=== PATIENT | female | born 1935 | race African-American/Black ===

== ENCOUNTER 2022-03-19 17:39 | Inpatient (IN) | payer OTHER ==
[~2022-03-19] VITALS: Ht 162.6 cm; Wt 31.9 kg
[2022-03-19 19:08] LABS: HEMATOCRIT. 47.4 % (36.0-48.0); HEMOGLOBIN. 14.5 g/dL (12.0-16.0); MEAN CORPUSCULAR HEMOGLOBIN 25.7 pg (28.0-32.0); MEAN CORPUSCULAR VOLUME 83.8 fL (81.0-99.0); MEAN PLATELET VOLUME 9.2 fl (7.4-10.4); PLATELET 404 x1000/uL (130-400); RED BLOOD CELL COUNT 5.66 mill/uL (4.2-5.4); RED CELL DISTRIBUTION WIDTH 16.1 % (11.6-14.6)
[2022-03-19] MEDS ORDERED: AZITHROMYCIN 500 MG in DEXT 5% WATER 250 ML IV STA (19:20)
[2022-03-19 19:21] LABS: CHLORIDE 115 mEq/L (98-107)
[2022-03-19 19:27] LABS: D-DIMER 12.25 mg/L FEU (<0.50); INR 1.2; PROTHROMBIN TIME 12.4 sec (9.6-11.0)
[2022-03-19] MEDS ORDERED: DEXAMETHASONE 10 MG/ML VIAL IV ONE (19:30)
[2022-03-19] MEDS ORDERED: CEFTRIAXONE 1 G PREMIX 50 ML IV ONE (19:30)
[2022-03-19 20:07] LABS: PLATELET ESTIMATE INCREASED
[2022-03-19] MEDS ORDERED: IOHEXOL-350 100 ML BOTTLE ONE ×2 (20:55→23:09)
[2022-03-19] MEDS ORDERED: HEPARIN 5000 UNITS/ML VIAL IV SCH (22:00)
[2022-03-19] MEDS ORDERED: HEPARIN 25,000 UNITS PREMIX 250 ML IV PRN (22:00)
[2022-03-19 23:30] VITALS: BP 148/89
[2022-03-20] VITALS (16 sets, daily range): BP systolic 116–182; BP diastolic 56–91
[2022-03-20] MEDS ORDERED: HEPARIN 25,000 UNITS PREMIX 250 ML IV SCH
[2022-03-20] MEDS ORDERED: HEPARIN 25,000 UNITS PREMIX 250 ML IV PRN (00:30)
[2022-03-20] MEDS ORDERED: HEPARIN 5000 UNITS/ML VIAL IV PRN ×2 (00:30)
[2022-03-20] MEDS ORDERED: ONDANSETRON HCL 4MG/2ML INJ IV PRN (00:45)
[2022-03-20] MEDS ORDERED: DOCUSATE SODIUM 100MG CAPSULE GT PRN (00:45)
[2022-03-20] MEDS ORDERED: MORPHINE SULFATE 2 MG/ML CPJ (NOT FOR IM USE) IV PRN (00:45)
[2022-03-20] MEDS ORDERED: GUAIFENESIN 200MG/10ML SUGAR FREE UDC GT PRN (00:45)
[2022-03-20] MEDS ORDERED: MAGNESIUM/ALUMINUM HYDROXIDE/SIMETHICONE 30ML UDC GT PRN (00:45)
[2022-03-20] MEDS ORDERED: CLONIDINE 0.1MG TABLET GT PRN (00:45)
[2022-03-20] MEDS ORDERED: DEXTROSE 50% WATER 50ML SYRINGE IV PRN (01:00)
[2022-03-20] MEDS: FUROSEMIDE 40MG/4ML VIAL IV SCH ×2 (01:31→08:01)
[2022-03-20] MEDS ORDERED: HYDRALAZINE 20MG/ML VIAL IV PRN (02:15)
[2022-03-20] MEDS ORDERED: LABETALOL HCL VIAL 20 MG/4 ML VIAL IV PRN (04:45)
[2022-03-20] MEDS: INSULIN LISPRO 100 UNITS/ML SUBCUT SCH ×3 (05:23→17:12)
[2022-03-20] MEDS: BLOOD SUGAR DIAGNOSTIC STRIP TEST SCH ×3 (05:23→17:05)
[2022-03-20] MEDS ORDERED: HEPARIN BOLUS PRN aPTT 37-44 IV (06:00)
[2022-03-20] MEDS ORDERED: HEPARIN BOLUS PRN aPTT <36 IV (06:00)
[2022-03-20 06:28] LABS: CHLORIDE 112 mEq/L (98-107)
[2022-03-20 06:35] LABS: HEMATOCRIT. 46.1 % (36.0-48.0); HEMOGLOBIN. 14.4 g/dL (12.0-16.0); MEAN CORPUSCULAR HEMOGLOBIN 26.1 pg (28.0-32.0); MEAN CORPUSCULAR VOLUME 83.7 fL (81.0-99.0); MEAN PLATELET VOLUME 9.4 fl (7.4-10.4); MONOCYTES % 2.6 % (2.0-8.0); NEUTROPHILS % 89.4 % (40.0-76.0); PLATELET 367 x1000/uL (130-400); RED BLOOD CELL COUNT 5.51 mill/uL (4.2-5.4); RED CELL DISTRIBUTION WIDTH 16.1 % (11.6-14.6)
[2022-03-20 06:51] LABS: CREATINE KINASE 34 IU/L (26-192); HDL CHOLESTEROL 65 mg/dL (40-59); LDL CHOLESTEROL 119 mg/dL (5-100)
[2022-03-20] MEDS ORDERED: BLOOD SUGAR DIAGNOSTIC STRIP TEST SCH (07:30)
[2022-03-20] MEDS ORDERED: INSULIN LISPRO 100 UNITS/ML SUBCUT SCH (08:00)
[2022-03-20] MEDS ORDERED: POTASSIUM CHLORIDE 20MEQ/PACKET NG NR (10:15)
[2022-03-20] MEDS ORDERED: NALOXONE HCL 0.4MG/ML VIAL IV PRN (10:30)
[2022-03-20] MEDS ORDERED: VASOPRESSIN 20 UNITS in SODIUM CHLORIDE 0.9% 100 ML IV SCH (11:00)
[2022-03-20] MEDS: HYDRALAZINE 20MG/ML VIAL IV SCH ×2 (11:01→17:12)
[2022-03-20 12:09] LABS: BG BASE EXCESS 3.3 mmol/L (-2.0-2.0); BG CARBOXYHEMOGLOBIN 0.4 % (0.5-1.5); BG DEOXYHEMOGLOBIN 0.4 % (0.0-5.0); BG FRACTION INSPIRED OXYGEN 100; BG HCO3 ACT 25.9 mmol/L (22.0-26.0); BG METHEMOGLOBIN 0.4 % (0.0-1.5); BG OXYGEN SATURATION 99.6 % (92.0-98.5); BG OXYHEMOGLOBIN 98.8 % (94.0-97.0); BG PCO2 33.6 mmHg (35.0-45.0); BG PH 7.505 (7.350-7.450); BG PO2 204.2 mmHg (75.0-100.0); BG SAMPLE SITE RIGHT RADIAL; BG TOTAL HEMOGLOBIN 15.1 g/dL (12.0-18.0); BG VENT MODE HIGH FLOW
[2022-03-20] MEDS: CEFTRIAXONE 1,000 MG in DEXTROSE 5% WATER 50 ML IV SCH (20:45)
[2022-03-20] MEDS: AZITHROMYCIN 500 MG in DEXT 5% WATER 250 ML IV SCH (20:45)
[2022-03-20] MEDS: AMLODIPINE 5MG TABLET NG SCH (20:46)
[2022-03-20] MEDS: ATORVASTATIN CALCIUM 10MG TABLET NG SCH (20:46)
[2022-03-21] VITALS (12 sets, daily range): BP systolic 99–137; BP diastolic 51–76
[2022-03-21] MEDS: BLOOD SUGAR DIAGNOSTIC STRIP TEST SCH ×5 (00:05→23:49)
[2022-03-21] MEDS: HYDRALAZINE 20MG/ML VIAL IV SCH ×5 (00:16→23:49)
[2022-03-21] MEDS: INSULIN LISPRO 100 UNITS/ML SUBCUT SCH ×5 (05:41→23:58)
[2022-03-21 08:05] LABS: INR 1.1; PROTHROMBIN TIME 11.7 sec (9.6-11.0)
[2022-03-21 08:10] LABS: BASOPHILS % 0.2 % (0.0-2.0); LYMPHOCYTES % 10.8 % (20.0-50.0); MEAN CORPUSCULAR HEMOGLOBIN 25.6 pg (28.0-32.0); MEAN CORPUSCULAR VOLUME 82.3 fL (81.0-99.0); MONOCYTES % 3.9 % (2.0-8.0); NEUTROPHILS % 85.1 % (40.0-76.0); PLATELET 358 x1000/uL (130-400); RED BLOOD CELL COUNT 5.47 mill/uL (4.2-5.4); RED CELL DISTRIBUTION WIDTH 16.2 % (11.6-14.6)
[2022-03-21] MEDS: FUROSEMIDE 40MG/4ML VIAL IV SCH (10:16)
[2022-03-21] MEDS: AMLODIPINE 5MG TABLET NG SCH ×2 (10:16→20:35)
[2022-03-21] MEDS ORDERED: SODIUM CHLORIDE 0.45% 1,000 ML IV SCH (12:00)
[2022-03-21] MEDS: DEXTROSE 5% WATER 1,000 ML IV SCH (12:53)
[2022-03-21] MEDS: ENOXAPARIN 30MG/0.3ML SYR SUBCUT SCH (14:17)
[2022-03-21] MEDS: CEFTRIAXONE 1,000 MG in DEXTROSE 5% WATER 50 ML IV SCH (20:35)
[2022-03-21] MEDS: AZITHROMYCIN 500 MG in DEXT 5% WATER 250 ML IV SCH (20:35)
[2022-03-21] MEDS: ATORVASTATIN CALCIUM 10MG TABLET NG SCH (20:35)
[2022-03-22] VITALS (12 sets, daily range): BP systolic 108–166; BP diastolic 45–76
[2022-03-22] MEDS: INSULIN LISPRO 100 UNITS/ML SUBCUT SCH ×3 (05:16→17:52)
[2022-03-22] MEDS: HYDRALAZINE 20MG/ML VIAL IV SCH ×3 (05:16→18:00)
[2022-03-22] MEDS: BLOOD SUGAR DIAGNOSTIC STRIP TEST SCH ×3 (05:16→17:52)
[2022-03-22] MEDS: DEXTROSE 5% WATER 1,000 ML IV SCH (05:17)
[2022-03-22 07:06] LABS: BASOPHILS % 0.1 % (0.0-2.0); EOSINOPHILS % 0.1 % (0.0-5.0); HEMATOCRIT. 39.7 % (36.0-48.0); HEMOGLOBIN. 12.6 g/dL (12.0-16.0); LYMPHOCYTES % 9.1 % (20.0-50.0); MEAN CORPUSCULAR HEMOGLOBIN 25.9 pg (28.0-32.0); MEAN CORPUSCULAR VOLUME 81.7 fL (81.0-99.0); MEAN PLATELET VOLUME 9.6 fl (7.4-10.4); MONOCYTES % 2.9 % (2.0-8.0); NEUTROPHILS % 87.8 % (40.0-76.0); PLATELET 306 x1000/uL (130-400); RED BLOOD CELL COUNT 4.86 mill/uL (4.2-5.4); RED CELL DISTRIBUTION WIDTH 15.7 % (11.6-14.6)
[2022-03-22] MEDS ORDERED: POTASSIUM CHLORIDE INJ 40 MEQ in DEXT 5% WATER 250 ML IV ONE (08:30)
[2022-03-22] MEDS: AMLODIPINE 5MG TABLET NG SCH ×2 (09:24→20:42)
[2022-03-22] MEDS: POTASSIUM CHLORIDE 20MEQ/PACKET PO SCH (09:24)
[2022-03-22] MEDS: LEVETIRACETAM 500MG/5ML CUP PO SCH ×2 (11:53→20:42)
[2022-03-22] MEDS: KCL 20MEQ/100ML X 2 FOR TOTAL KCL 40MEQ/200ML IV SCH ×2 (11:54→15:21)
[2022-03-22] MEDS: ENOXAPARIN 30MG/0.3ML SYR SUBCUT SCH (13:04)
[2022-03-22] MEDS: AZITHROMYCIN 500 MG in DEXT 5% WATER 250 ML IV SCH (20:41)
[2022-03-22] MEDS: ATORVASTATIN CALCIUM 10MG TABLET NG SCH (20:42)
[2022-03-22] MEDS: CEFTRIAXONE 1,000 MG in DEXTROSE 5% WATER 50 ML IV SCH (20:42)
[2022-03-23] VITALS (14 sets, daily range): BP systolic 115–163; BP diastolic 56–77
[2022-03-23] MEDS: BLOOD SUGAR DIAGNOSTIC STRIP TEST SCH ×4 (00:15→17:19)
[2022-03-23] MEDS: INSULIN LISPRO 100 UNITS/ML SUBCUT SCH ×4 (00:39→17:26)
[2022-03-23] MEDS: HYDRALAZINE 20MG/ML VIAL IV SCH ×2 (00:40→05:21)
[2022-03-23] MEDS: DEXTROSE 5% WATER 1,000 ML IV SCH (04:15)
[2022-03-23 05:11] LABS: CLARITY URINE TURBID (CLEAR); COLOR URINE DARK YELLOW (YELLOW); KETONES URINE TRACE (NEGATIVE); LEUKOCYTE ESTERASE URINE 2+ (NEGATIVE); NITRITE URINE NEGATIVE (NEGATIVE); OCCULT BLOOD URINE NEGATIVE (NEGATIVE); PROTEIN URINE 2+ (NEGATIVE); SPECIFIC GRAVITY URINE 1.039 (1.005-1.030)
[2022-03-23] MEDS: AMLODIPINE 5MG TABLET NG SCH ×2 (08:31→20:35)
[2022-03-23] MEDS: POTASSIUM CHLORIDE 20MEQ/PACKET PO SCH (08:31)
[2022-03-23] MEDS ORDERED: SODIUM CHLORIDE 0.9% 1,000 ML IV SCH (12:00)
[2022-03-23] MEDS ORDERED: HYDRALAZINE HCL 50MG TABLET NG SCH (14:00)
[2022-03-23] MEDS ORDERED: SODIUM POLYSTYRENE SULFONATE 15 G/60 ML BOT PO NR (14:30)
[2022-03-23] MEDS: ENOXAPARIN 30MG/0.3ML SYR SUBCUT SCH (14:48)
[2022-03-23 15:58] LABS: BASOPHILS % 0.3 % (0.0-2.0); EOSINOPHILS % 0.1 % (0.0-5.0); HEMATOCRIT. 39.1 % (36.0-48.0); HEMOGLOBIN. 12.4 g/dL (12.0-16.0); LYMPHOCYTES % 8.4 % (20.0-50.0); MEAN CORPUSCULAR HEMOGLOBIN 25.8 pg (28.0-32.0); MEAN CORPUSCULAR VOLUME 81.5 fL (81.0-99.0); MONOCYTES % 2.9 % (2.0-8.0); NEUTROPHILS % 88.3 % (40.0-76.0); PLATELET 246 x1000/uL (130-400); RED BLOOD CELL COUNT 4.81 mill/uL (4.2-5.4); RED CELL DISTRIBUTION WIDTH 15.6 % (11.6-14.6)
[2022-03-23 16:25] LABS: CHLORIDE 106 mEq/L (98-107)
[2022-03-23] MEDS: ATORVASTATIN CALCIUM 10MG TABLET NG SCH (20:34)
[2022-03-23] MEDS: AZITHROMYCIN 500 MG in DEXT 5% WATER 250 ML IV SCH (20:34)
[2022-03-23] MEDS: CEFTRIAXONE 1,000 MG in DEXTROSE 5% WATER 50 ML IV SCH (20:34)
[2022-03-23] MEDS ORDERED: LEVETIRACETAM 500MG/5ML CUP PO SCH (21:00)
== END 2022-03-23 22:00 | disposition short-term general hospital (02) | DRG 871 ==
LOC: ER 17:39 → EDBEDREQ 18:18 → EDBEDREQSVC 18:18 → 5EST 20:43 → EDBEDREQSVC 20:52 → EDBEDREQTM 20:52 → EDBEDREQ 20:52 → ENRESERV 21:18 → 5EST 03-20 00:34
PROVIDERS: ADMIT Family Medicine Adult Medicine; ATTEND Family Medicine Adult Medicine
PROC: 5A0935A Assistance with Respiratory Ventilation, Less than 24 Consecutive Hours, High Flow/Velocity Cannula (ICD-10-PCS; principal; 2022-03-20)
PROC: 4A00X4Z Measurement of Central Nervous Electrical Activity, External Approach (ICD-10-PCS; 2022-03-22)
DX: A41.9 Sepsis, unspecified organism (principal); G93.41 Metabolic encephalopathy; I26.99 Other pulmonary embolism without acute cor pulmonale; J18.9 Pneumonia, unspecified organism; J96.01 Acute respiratory failure with hypoxia; E87.0 Hyperosmolality and hypernatremia; E44.0 Moderate protein-calorie malnutrition; E87.2 Acidosis; R64 Cachexia; J81.1 Chronic pulmonary edema; Z68.1 Body mass index [BMI] 19.9 or less, adult; E87.6 Hypokalemia; Z20.822 Contact with and (suspected) exposure to COVID-19; E87.8 Other disorders of electrolyte and fluid balance, not elsewhere classified; F03.90 Unspecified dementia, unspecified severity, without behavioral disturbance, psychotic disturbance, mood disturbance, and anxiety; E78.5 Hyperlipidemia, unspecified; E88.09 Other disorders of plasma-protein metabolism, not elsewhere classified; E86.0 Dehydration; R79.89 Other specified abnormal findings of blood chemistry; E11.65 Type 2 diabetes mellitus with hyperglycemia; I25.10 Atherosclerotic heart disease of native coronary artery without angina pectoris; I10 Essential (primary) hypertension; I49.3 Ventricular premature depolarization; I35.1 Nonrheumatic aortic (valve) insufficiency; I49.1 Atrial premature depolarization; N28.9 Disorder of kidney and ureter, unspecified; Z79.4 Long term (current) use of insulin; Z66 Do not resuscitate; Z86.73 Personal history of transient ischemic attack (TIA), and cerebral infarction without residual deficits
CPT/HCPCS: 36415; 36600; 71045; 71275; 76770; 80048; 80053; 80061; 81003; 82140; 82375; 82550; 82805; 82962; 83036; 83605; 83880; 84145; 84443; 84484; 85025; 85379; 86850; 86900; 87426; 92610; 93005; 93306; 97165; 97530; 99285; C9803; J0360; J0456; J0696; J1100; J1644; J1650; J1815; J1940; J3480; J3490; J7030; J7050; J7060; J7070; Q9967